=== PATIENT | male | born 1935 | race Caucasian/White ===

== ENCOUNTER 2017-01-28 08:50 | Inpatient (IN) | payer MEDICARE, OTHER ==
--- NOTE | ~2017-01-28 | DS ---
Discharge Summary [facility] [address] [place]. [address] NAME: BLAINE MELISSA : 31 STATUS : DIS IN PAT#: [id number] AGE: 82 ADM/REG DATE : 01/28/17 MR#: [id number] REPORT SERV DATE: 01/29/17 DICTATED BY: ALDA SNOWDEN DATE: 01/29/17 REPORT STATUS : Draft TRANSCRIBED BY: MODL DATE: 01/29/17 ADMISSION DATE: 01/28/2017 DISCHARGE DATE: 01/29/2017 DIAGNOSES OF DISCHARGE: 1. Paroxysmal atrial fibrillation, converted to normal sinus rhythm. 2. Positive troponin I secondary to above, status post cardiac catheterization showing no significant coronary artery disease, normal left systolic function 60%, no significant mitral regurgitation. 3. Right basilar atelectasis, improved. 4. Peripheral neuropathy. 5. Gastroesophageal reflux disease. 6. Osteoarthritis. 7. History of prostate cancer with prostatectomy. CONSULTANTS ON THE CASE: Dr. Swapnil Arreola at [facility] and Dr. Hamlet Ambriz at [facility]. PROCEDURES DONE DURING THIS HOSPITALIZATION: Include a cardiac catheterization performed on 01/28/2017 that has shown that the patient has had no coronary artery disease, and an ejection fraction of about 60% as well. 2D echo has shown normal left ventricular ejection fraction. Chest x-ray showed right basilar atelectasis. Blood cultures remained negative at discharge. His lactate was normal. His procalcitonin was negative. His urine streptococcal antigen has been negative. HOSPITAL COURSE: This is a very pleasant 82-year-old gentleman who has been admitted on 01/28/2017 to [facility] with atrial fibrillation with rapid ventricular response as well as initially positive troponin that was thought to be non-ST [place]. The patient has been seen by Dr. Swapnil Arreola at [facility]. He has been started on rate control medications, and the patient has been transferred to [facility] for cardiac catheterization. He has been also placed on heparin drip, and he has been transferred and underwent a cardiac catheterization performed by Dr. Hamlet Ambriz on 01/28/2017 with results of the cardiac cath showing no significant coronary artery disease and normal ejection fraction. The patient has been continued with rate control with beta pallavi. He has been transitioned from heparin to Eliquis and scheduled for possible FABRIZIO cardioversion in a.m. However, the patient converted spontaneously and remained in sinus rhythm during the rest of the hospitalization. So, Dr. Ambriz did not recommend it. Obviously, no cardioversion has been performed. The patient has been ready for discharge from the Cardiology standpoint on 01/29/2017. MEDICATIONS AT DISCHARGE: Would include Eliquis 5 mg p.o. twice a day, vitamin B12 of 1000 mcg p.o. daily, folic acid 4 mg p.o. daily, Neurontin 400 twice a day, and Lopressor 12.5 b.i.d. FOLLOWUP: The patient has been advised to follow up with his primary care provider in one week after discharge and follow up with Dr. Swapnil Arreola, at [facility] in two to three weeks Discharge Summary [address] [place]. [address] NAME: BLAINE MELISSA : 31 STATUS : DIS IN PAT#: [id number] AGE: 82 ADM/REG DATE : 01/28/17 MR#: [id number] REPORT SERV DATE: 01/29/17 DICTATED BY: ALDA SNOWDEN DATE: 01/29/17 REPORT STATUS : Draft TRANSCRIBED BY: FELICITY DATE: 01/29/17 after discharge. Cardiology recommendations. That has been discussed extensively with the patient as well as the family. All the questions have been answered in full. CF/ZULLYL Alda Snowden M.D. / [id number] CC: Renetta Carson M.D. Andrew H Fowler, M.D.
[~2017-01-28 08:50] MED LIST: ASAB PO; CYANO1000T PO; FOLIC PO; NEUR400 PO; VITAMIN B PO; ZANTAC150 MG PO
[2017-01-29 06:25] LABS: BASOPHILS 0.3 %; BASOPHILS ABSOLUTE 0.02 10/3/uL (0.0-0.16); EOSINOPHILS 4.6 %; EOSINOPHILS ABSOLUTE 0.27 10/3/uL (0.0-0.53); HEMOGLOBIN 12.5 g/dL (13.6-17.8); IMMATURE GRANULOCYTES 0.3 %; IMMATURE GRANULOCYTES ABSOLUTE 0.02 10/3/uL (0.0-0.11); LYMPHOCYTES 25.7 %; LYMPHOCYTES ABSOLUTE 1.51 10/3/uL (0.67-4.30); MEAN CORPUS HGB CONC 33.1 g/dL (32.0-36.0); MEAN CORPUSCULAR HEMOGLOB 33.2 pg (26.0-34.0); MEAN CORPUSCULAR VOLUME 100.5 fL (80-100); MEAN PLATELET VOLUME 10.6 fL (9.2-13.0); MONOCYTES 10.7 %; MONOCYTES ABSOLUTE 0.63 10/3/uL (0.21-1.20); NEUTROPHILS 58.4 %; NEUTROPHILS ABSOLUTE 3.43 10/3/uL (2.02-8.40); PLATELET COUNT 185 10/3/uL (150-400); RBC DISTRIBUTION WIDTH 13.4 % (12.0-16.0); RED CELL COUNT 3.76 10/6/uL (4.7-6.1); WHITE BLOOD CELLS 5.9 10/3/uL (4.5-10.5)
[2017-01-29 06:26] LABS: HEMATOCRIT 37.8 % (40.0-51.0); MANUAL DIFF NO %
[2017-01-29 06:41] LABS: ALKALINE PHOSPHATASE 53 U/L (45-117); CHLORIDE, SERUM 110 MMOL/L (96-112); CO2 (CARBON DIOXIDE) 24 MMOL/L (24-34); GLOBULIN 2.9 G/DL (2.5-4.1); POTASSIUM, SERUM 4.1 MMOL/L (3.5-5.3); SGOT(AST) 22 U/L (5-40); SGPT(ALT) 17 U/L (5-65); SODIUM, SERUM 143 MMOL/L (135-148); TOTAL BILIRUBIN 1.3 MG/DL (0-1.2); TOTAL PROTEIN 5.9 G/DL (6.0-8.5)
[2017-01-29 06:44] LABS: BUN (BLOOD UREA NITROGEN) 16 MG/DL (6-23); CALCIUM, SERUM 7.8 MG/DL (8.5-10.4); CREATININE 0.59 MG/DL (0.70-1.30); GFR AFRICAN AMERICAN 108 ML/MIN (>=60); GFR NON AFRICAN AMERICAN 93 ML/MIN (>=60); GLUCOSE, SERUM 86 MG/DL (60-99)
[2017-01-29] MEDS ORDERED: ELIQUIS 5 MG TAB5 MG PO (11:23)
[2017-01-29] MEDS ORDERED: LOP25 PO (11:24)
== END 2017-01-29 12:02 | disposition home or self-care (01) | DRG 281 ==
LOC: CORLMH 08:50 → SSU1 11:51 → 5NO 19:50
PROVIDERS: Internal Medicine Cardiovascular Disease
PROC: 4A023N7 Measurement of Cardiac Sampling and Pressure, Left Heart, Percutaneous Approach (ICD-10-PCS; principal; 2017-01-28)
PROC: B2111ZZ Fluoroscopy of Multiple Coronary Arteries using Low Osmolar Contrast (ICD-10-PCS; 2017-01-28)
PROC: B2151ZZ Fluoroscopy of Left Heart using Low Osmolar Contrast (ICD-10-PCS; 2017-01-28)
DX: I21.4 Non-ST elevation (NSTEMI) myocardial infarction (principal); J98.11 Atelectasis; I95.89 Other hypotension; I48.0 Paroxysmal atrial fibrillation; G62.9 Polyneuropathy, unspecified; K21.9 Gastro-esophageal reflux disease without esophagitis; M19.90 Unspecified osteoarthritis, unspecified site; E78.5 Hyperlipidemia, unspecified; Z85.46 Personal history of malignant neoplasm of prostate; Z79.82 Long term (current) use of aspirin; Z79.899 Other long term (current) drug therapy
CPT/HCPCS: 71010; 80048; 80053; 80061; 82550; 82553; 83605; 83735; 84145; 84439; 84443; 84484; 85025; 85379; 85610; 85730; 87040; 87449; 93005; 93306; 93458; 96365; 96372; 96375; 96376; 99152; 99291; A9270-GY; C1769; C1887; C1894; G0378; J1170; J2250; J3010; Q9967